=== PATIENT | male | born 1960 | race Caucasian/White ===

== ENCOUNTER 2025-04-16 09:21 | Day surgery (SDC) | payer OTHER ==
[~2025-04-16] VITALS: Ht 177.8 cm; Wt 125.0 kg
[~2025-04-16 09:21] MED LIST: IBUP-2853 PO; RINGERS SOLUTION,LACTATED 1,000 ML IV ONE
[2025-04-16] MEDS ORDERED: BUPIVACAINE LIPOSOME/PF 1.3%-13.3MG/ML SUSP 20 ML VIAL INJ ONE (09:30)
[2025-04-16] MEDS ORDERED: LISI-893 PO (09:46)
[2025-04-16] MEDS ORDERED: RINGERS SOLUTION,LACTATED 1,000 ML IV ONE (10:00)
[2025-04-16 10:03] LABS: PLATELET COUNT (AUTO) 304 K/uL (150-450); RED BLOOD CELL COUNT(AUTO) 4.40 MIL/uL (4.50-5.90); RED CELL DISTRIBUTION WIDTH 13.5 % (11.5-14.5); WHITE BLOOD COUNT (AUTO) 5.7 K/uL (4.5-11.0)
[2025-04-16 10:14] LABS: CALCIUM, TOTAL 8.8 mg/dL (8.8-10.5); CREATININE 1.04 mg/dL (0.60-1.30); GLOMERULAR FILTR. RATE CALC > 60 mL/min (>60); GLUCOSE,RANDOM 93 mg/dL (70-110); SODIUM SERUM 140 mmol/L (136-145); UREA NITROGEN, BLOOD 26 mg/dL (7-18)
[2025-04-16] MEDS: CHLORHEXIDINE GLUCONATE 2% TOWELETTE [2'S/6'S] TP ONE (10:15)
[2025-04-16] MEDS: RINGERS SOLUTION,LACTATED 1,000 ML IV ONE (10:15)
[2025-04-16] MEDS: ETHYL ALCOHOL 62% ANTISEPTIC NASAL SANITIZER 0.6 ML AMPUL NASAL ONE (10:16)
[2025-04-16 10:18] LABS: ASPARTATE AMINOTRANSFERASE 23 U/L (15-37); TOTAL PROTEIN, SERUM 6.8 g/dL (6.4-8.2)
[2025-04-16] MEDS: BUPIVACAINE HCL/PF 0.25% 30 ML VIAL ONE (12:40)
[2025-04-16] MEDS ORDERED: OxyCODONE HCL/ACETAMINOPHEN 5-325 MG TABLET ONE (13:26)
[2025-04-16] MEDS: OxyCODONE HCL/ACETAMINOPHEN 5-325 MG TABLET PO ONE (13:28)
[2025-04-16] MEDS ORDERED: DEXAMETHASONE SOD PHOS 4 MG/ML VIAL ONE (16:25)
[2025-04-16] MEDS ORDERED: LIDOCAINE/PF 2% 5 ML VIAL ONE (16:25)
[2025-04-16] MEDS ORDERED: KETOROLAC TROMETHAMINE 60 MG/2 ML VIAL IM ONE (16:25)
[2025-04-16] MEDS ORDERED: PROPOFOL 1% 20 ML VIAL IVP ONE (16:25)
[2025-04-16] MEDS ORDERED: ONDANSETRON HCL 4 MG/2 ML VIAL ONE (16:25)
[2025-04-16] MEDS ORDERED: ROCURONIUM BROMIDE 10 MG/ML 5 ML VIAL ONE (16:25)
[2025-04-16] MEDS ORDERED: METOCLOPRAMIDE HCL 5 MG/ML 2 ML VIAL ONE (16:25)
[2025-04-16] MEDS ORDERED: MIDAZOLAM HCL 2 MG/2 ML VIAL ONE (16:39)
[2025-04-16] MEDS ORDERED: FentaNYL CITRATE PF 100 MCG/2 ML VIAL ONE (16:39)
== END 2025-04-16 14:45 | disposition home or self-care (01) ==
LOC: SURGERY 09:21
PROVIDERS: ATTEND Specialist
DX: M75.41 Impingement syndrome of right shoulder (principal); M65.811 Other synovitis and tenosynovitis, right shoulder; M75.101 Unspecified rotator cuff tear or rupture of right shoulder, not specified as traumatic; I11.0 Hypertensive heart disease with heart failure; I50.9 Heart failure, unspecified; Z79.01 Long term (current) use of anticoagulants; Z79.899 Other long term (current) drug therapy; Z98.890 Other specified postprocedural states; R94.31 Abnormal electrocardiogram [ECG] [EKG]; Z96.642 Presence of left artificial hip joint; Z96.698 Presence of other orthopedic joint implants; Z72.89 Other problems related to lifestyle
CPT/HCPCS: 29824; 80053; 85025; 85610; 85730; 36415; 93005; 64415; J0666; J1885; J3490 ×3; J2704; J0690; J1100; J3010; J2765; J2250; J2405; J7120